=== PATIENT | female | born 1960 | race Caucasian/White ===

== ENCOUNTER 2017-02-06 05:35 | Day surgery (SDC) | payer OTHER ==
[~2017-02-06] VITALS: Ht 167.6 cm; Wt 65.2 kg
[~2017-02-06 05:35] MED LIST: BYSTOLIC5 MG PO; CRESTOR10 MG PO; DIALYVITE V5000 UNIT PO; FERREX 150150 MG PO; HYDRALAZINE HC100 MG PO; HYDRALAZINE HCL50 MG PO; PROCRIT10000 UNI1 SC; RENVELA800 MG PO; ROCALTROL0.25 MCG PO
[2017-02-06 06:02] VITALS: BP 130/62
[2017-02-06 06:03] LABS: HEMATOCRIT 33.2 % (36.0-46.0); MCH 27.4 PG (29.0-34.0); MCV 88.3 FL (83-99); MEAN PLAT.VOLUME 9.2 uM^3 (9.5-12.4); PLATELET COUNT 132 K/uL (156-360); RBC DIS.WIDTH-CV 17.6 % (11.8-14.6); RBC DIS.WIDTH-SD 56.8 % (39-53); RED BLOOD COUNT 3.76 M/uL (3.80-5.20)
[2017-02-06 06:20] LABS: ANION GAP 13 MEQ/L (2-14); CHLORIDE 110 MEQ/L (99-109); POTASSIUM 4.1 MEQ/L (3.7-5.4); SAMPLE HEMOLYSIS CHECK 0; SAMPLE ICTERIC CHECK 0; SAMPLE LIPEMIA CHECK 0; SODIUM 140 MEQ/L (136-147)
[2017-02-06 06:43] LABS: GFR ESTIMATE (CALCULATED) 6 mL/min/; GLUCOSE 100 mg/dL (70-99)
[2017-02-06 06:52] LABS: UREA NITROGEN (BUN) 103 mg/dL (9-23)
[2017-02-06] MEDS ORDERED: NORCO 5/3251 TABLET PO (09:22)
[2017-02-06 11:00] VITALS: BP 127/57
[2017-02-06 12:06] VITALS: BP 119/60
[2017-02-06 13:45] VITALS: BP 123/71
== END 2017-02-06 13:45 | disposition home or self-care (01) ==
LOC: SDC 05:35
PROVIDERS: Surgery
PROC: 0WHG43Z Insertion of Infusion Device into Peritoneal Cavity, Percutaneous Endoscopic Approach (ICD-10-PCS; principal; 2017-02-06)
DX: I12.0 Hypertensive chronic kidney disease with stage 5 chronic kidney disease or end stage renal disease (principal); N18.6 End stage renal disease; Q61.3 Polycystic kidney, unspecified; Z88.8 Allergy status to other drugs, medicaments and biological substances; Z83.3 Family history of diabetes mellitus; Z84.1 Family history of disorders of kidney and ureter; Z82.49 Family history of ischemic heart disease and other diseases of the circulatory system
CPT/HCPCS: 80048; 85027; 93005; C1750; J0131; J0690; J1100; J2250; J2405; J2550; J2710; J2765; J3010; S0020

== ENCOUNTER 2017-02-19 15:40 | Day surgery (SDC) | payer OTHER ==
[~2017-02-19] VITALS: Ht 167.6 cm; Wt 65.5 kg
[~2017-02-19 15:40] MED LIST changes: +NORCO 5/3251 TABLET PO
[2017-02-19 15:59] VITALS: BP 139/71
[2017-02-19] MEDS ORDERED: NABI650T PO (16:04)
[2017-02-19 16:10] VITALS: BP 139/71
[2017-02-19 16:20] LABS: EOSINOPHIL (%) 3.4 % (0-5); EOSINOPHIL COUNT 0.1 K/uL (0-0.3); IMMATURE GRANULOCYTE (%) 0.3 % (0.0-0.7); INSTRUMENT ABS NEUTROPHIL CT 2.4 K/uL; LYMPHOCYTE COUNT 0.6 K/uL (1.0-2.8); MCH 26.4 PG (29.0-34.0); MCHC 30.7 G/DL (30.0-36.0); MCV 86.2 FL (83-99); MEAN PLAT.VOLUME 9.9 uM^3 (9.5-12.4); MONOCYTE (%) 4.7 % (3-12); MONOCYTE COUNT 0.2 K/uL (0-0.8); NEUTROPHIL (%) 73.3 % (45-76); NEUTROPHIL COUNT 2.4 K/uL (1.8-6.4); PLATELET COUNT 142 K/uL (156-360); RBC DIS.WIDTH-CV 15.7 % (11.8-14.6); RBC DIS.WIDTH-SD 49.6 % (39-53); RED BLOOD COUNT 3.48 M/uL (3.80-5.20); WHITE BLOOD COUNT 3.2 K/uL (4.1-10.2)
[2017-02-19 16:40] LABS: ANION GAP 15 MEQ/L (2-14); CHLORIDE 108 MEQ/L (99-109); GFR ESTIMATE (CALCULATED) 6 mL/min/; GLUCOSE 90 mg/dL (70-99); POTASSIUM 3.5 MEQ/L (3.7-5.4); SAMPLE HEMOLYSIS CHECK 0; SAMPLE ICTERIC CHECK 0; SAMPLE LIPEMIA CHECK 0; SODIUM 137 MEQ/L (136-147); UREA NITROGEN (BUN) 93 mg/dL (9-23)
[2017-02-19 21:40] VITALS: BP 134/70
[2017-02-19 22:35] VITALS: BP 127/67
== END 2017-02-19 22:45 | disposition home or self-care (01) ==
LOC: SDC 15:40
PROVIDERS: Surgery
PROC: 0WWG40Z Revision of Drainage Device in Peritoneal Cavity, Percutaneous Endoscopic Approach (ICD-10-PCS; principal; 2017-02-19)
DX: T82.49XA Other complication of vascular dialysis catheter, initial encounter (principal); Y83.1 Surgical operation with implant of artificial internal device as the cause of abnormal reaction of the patient, or of later complication, without mention of misadventure at the time of the procedure; I12.9 Hypertensive chronic kidney disease with stage 1 through stage 4 chronic kidney disease, or unspecified chronic kidney disease; N18.9 Chronic kidney disease, unspecified; Q61.3 Polycystic kidney, unspecified; Z88.8 Allergy status to other drugs, medicaments and biological substances; Z83.3 Family history of diabetes mellitus; Z82.49 Family history of ischemic heart disease and other diseases of the circulatory system; Z81.4 Family history of other substance abuse and dependence
CPT/HCPCS: 80048; 85025; J0330; J1100; J2405; J2765; J3010; S0020